=== PATIENT | female | born 1990 | race Two or more races ===

== ENCOUNTER 2020-03-02 22:23 | Emergency (ER) | payer MEDICAID, OTHER ==
[~2020-03-02] VITALS: Ht 162.6 cm; Wt 70.0 kg
[2020-03-02 23:54] VITALS: BP 148/87
== END 2020-03-02 23:55 | disposition home or self-care (01) ==
LOC: ER 22:23
DX: S30.860A Insect bite (nonvenomous) of lower back and pelvis, initial encounter (principal); L02.31 Cutaneous abscess of buttock; F41.9 Anxiety disorder, unspecified; W57.XXXA Bitten or stung by nonvenomous insect and other nonvenomous arthropods, initial encounter; Y93.9 Activity, unspecified; Y92.9 Unspecified place or not applicable
CPT/HCPCS: 99281